=== PATIENT | male | born 1975 | race Hispanic/Latino ===

== ENCOUNTER 2016-12-29 12:05 | Emergency (ER) | payer OTHER ==
[2016-12-29 12:10] VITALS: RESP 18; TEMP 97.9
[2016-12-29] MEDS ORDERED: Lidocaine 2% Inj (20ml) ONE (13:05)
--- NOTE | 2016-12-29 15:22 | RAD ---
PROCEDURE: Left thumb 12/29/2016. HISTORY: s/p reduction COMPARISON: Comparison made with earlier film same day TECHNIQUE: AP radiograph of the left hand, as well as spot oblique and lateral images of thumb were obtained. Note that the overlying fiberglass cast limits evaluation diminishing fine soft tissue and bone detail FINDINGS: LEFT THUMB: Previously noted fracture base of the 1st metacarpal again noted though less well delineated due to overlying fiberglass cast. Fracture line appears to extend through the joint space margin as well (1st metacarpal/ greater multangular articulation). Apparent satisfactory alignment. Mild surrounding soft tissue swelling felt to be present JOINTS: As above SOFT TISSUES: Normal. OTHER FINDINGS: None. IMPRESSION: The study is somewhat limited due to a surrounding fiberglass cast which diminishes fine soft tissue and bone detail. Status post closed reduction previously in noted fracture base of the 1st metacarpal with some surrounding soft tissue swelling. Exit
[2016-12-29 15:24] VITALS: BP 124/75; PULSE 75; O2SAT 98
--- NOTE | 2016-12-29 15:51 | C.PDOC ---
History Of Present Illness 41 yr old male was refered to the ER for a fracture and dislocation of the left thumb. Patient reports he was walking off the light rail when he tripped, extending his left hand to break his fall. Patient states he is minimally able to flex his thumb but is not able to oppose it. Patient had XRay done [employer]. Patient denies LOC, nausea, vomiting, abdominal pain, shoulder pain, back pain, weakness or numbness. Time Seen by Provider: 12/29/16 12:35 Chief Complaint (Nursing): Upper Extremity Problem/Injury History Per: Patient History/Exam Limitations: no limitations Onset/Duration Of Symptoms: Sudden Onset ([employer]) Current Symptoms Are (Timing): Better Past Medical History Reviewed: Historical Data, Nursing Documentation, Vital Signs Vital Signs: Last Vital Signs Temp 97.9 F 12/29/16 12:10 Pulse 75 12/29/16 15:19 Resp 18 12/29/16 15:19 BP 124/75 12/29/16 15:19 Pulse Ox 98 12/29/16 18:04 Family History: States: No Known Family Hx - Social History Hx Alcohol Use: Yes Hx Substance Use: No - Immunization History Hx Tetanus Toxoid Vaccination: Yes Hx Influenza Vaccination: No Hx Pneumococcal Vaccination: No Review Of Systems Except As Marked, All Systems Reviewed And Found Negative. Gastrointestinal: Negative for: Nausea, Vomiting, Abdominal Pain Musculoskeletal: Positive for: Other ((+) Left thumb injury ). Negative for: Shoulder Pain, Back Pain Neurological: Negative for: Weakness, Numbness Physical Exam - Physical Exam Appears: Well, Non-toxic, No Acute Distress Skin: Warm, Dry, No Rash Head: Atraumatic, Normacephalic Neck: Normal, Normal ROM, No Midline Cervical Tenderness, Supple Chest: Symmetrical, No Tenderness Cardiovascular: Rhythm Regular, No Murmur Respiratory: Normal Breath Sounds, No Rales, No Rhonchi, No Stridor, No Wheezing Extremity: Capillary Refill (<2), Deformity (Left Hand, Thumb - Mild deformity noted to the lateral aspect. ), Other (Left Hand, Thumb - Minimal flexion at the 1st metacarpal joint. Not able to oppse. Small abrasion noted to the thenar eminence. ) Pulses: Left Radial: Normal, Right Radial: Normal Neurological/Psych: Oriented x3, Normal Speech, Normal Motor ED Course And Treatment O2 Sat by Pulse Oximetry: 98 - Other Rad X-Ray - Left Hand, Thumb X-Ray: Viewed By Me, Read By Radiologist Interpretation: PROCEDURE: Left thumb 12/29/2016. HISTORY: s/p reduction. COMPARISON: Comparison made with earlier film same day. TECHNIQUE: AP radiograph of the left hand, as well as spot oblique and lateral images of thumb were obtained. Note that the overlying fiberglass cast limits evaluation diminishing fine soft tissue and bone detail. FINDINGS: LEFT THUMB: Previously noted fracture base of the 1st metacarpal again noted though less well delineated due to overlying fiberglass cast. Fracture line appears to extend through the joint space margin as well (1st metacarpal/ greater multangular articulation). Apparent satisfactory alignment. Mild surrounding soft tissue swelling felt to be present. JOINTS: As above. SOFT TISSUES: Normal. OTHER FINDINGS: None. IMPRESSION: The study is somewhat limited due to a surrounding fiberglass cast which diminishes fine soft tissue and bone detail. Status post closed reduction previously in noted fracture base of the 1st metacarpal with some surrounding soft tissue swelling. Progress Note: Spoke to Dr. Rice regarding the patient who reccomend 1 attempt at reduction but states the joint is unstable and will most likely re dislocated spontaneously and patient will most likely need pin placement. XRay pictures were sent to the Dr. Rice. Medical Decision Making Medical Decision Making: PLAN: * X-ray - Left Hand, Thumb PROCEDURE NOTE: * Lidocaine was injected into the joint and attempted to reduce with partial success. * Thumb spica was applied by myself and mobile service rv technician. Disposition - Disposition Referrals: Kristian Gonzalez MD [Staff Provider] - Disposition: HOME/ ROUTINE Disposition Time: 15:00 Condition: GOOD Additional Instructions: Thank you for letting us take care of you today. Your provider was Dr. Chen. You were treated for fracture/dislocation of the thumb. The emergency medical care you received today was directed at your acute symptoms. If you were prescribed any medication, please fill it and take as directed. It may take several days for your symptoms to resolve. Return to the Emergency Department if your symptoms worsen, do not improve, or if you have any other problems. Please contact your doctor or call one of the physicians/clinics you have been referred to that are listed on the Patient Visit Information form that is included in your discharge packet. Bring any paperwork you were given at discharge with you along with any medications you are taking to your follow up visit. Our treatment cannot replace ongoing medical care by a primary care provider (PCP) outside of the emergency department. Thank you for allowing the [facility] team to be part of your care today. Keep your hand in the splint at all times. Keep the splint clean and dry at all times. Follow up with Dr. Gonzalez or a hand doctor as soon as you return from your trip. Instructions: Splint Care (ED), Finger Dislocation (ED), Thumb Fracture (ED) - Clinical Impression Clinical Impression: Thumb fracture, Thumb dislocation - Scribe Statement The provider has reviewed the documentation as recorded by the Kaley Roberts Provider Attestation: All medical record entries made by the Kaley were at my direction and personally dictated by me. I have reviewed the chart and agree that the record accurately reflects my personal performance of the history, physical exam, medical decision making, and the department course for this patient. I have also personally directed, reviewed, and agree with the discharge instructions and disposition.
== END 2016-12-29 15:24 | disposition home or self-care (01) ==
LOC: C.ER 12:05
DX: S62.502A Fracture of unspecified phalanx of left thumb, initial encounter for closed fracture (principal); V81.4XXA Person injured while boarding or alighting from railway train or railway vehicle, initial encounter; Y92.85 Railroad track as the place of occurrence of the external cause